=== PATIENT | female | born 1980 | race African-American/Black ===

== ENCOUNTER 2019-05-18 09:49 | Emergency (ER) | payer MEDICAID ==
[~2019-05-18] VITALS: Ht 162.6 cm; Wt 60.0 kg
[2019-05-18] MEDS ORDERED: SODIUM CHLORIDE 0.9% 1,000 ML IV ONE (10:19)
[2019-05-18 11:22] LABS: BASOPHILS % 0.5 % (0.0-2.0); EOSINOPHILS % 0.2 % (0.0-5.0); HEMATOCRIT. 40.3 % (36.0-48.0); HEMOGLOBIN. 13.6 g/dL (12.0-16.0); LYMPHOCYTES % 19.7 % (20.0-50.0); MEAN CORPUSCULAR HEMOGLOBIN 33.5 pg (28.0-32.0); MEAN CORPUSCULAR VOLUME 99.3 fL (81.0-99.0); MEAN PLATELET VOLUME 7.3 fl (7.4-10.4); MONOCYTES % 3.7 % (2.0-8.0); NEUTROPHILS % 75.9 % (40.0-76.0); PLATELET 286 x1000/uL (130-400); RED BLOOD CELL COUNT 4.06 mill/uL (4.2-5.4); RED CELL DISTRIBUTION WIDTH 13.1 % (11.6-14.6)
[2019-05-18 11:27] LABS: CHLORIDE 107 mEq/L (98-107)
[2019-05-18] MEDS ORDERED: ONDANSETRON HCL 4MG/2ML INJ IV ONE ×2 (11:30→13:45)
[2019-05-18 11:31] LABS: ETHANOL BLOOD < 10 mg/dL
[2019-05-18 11:38] LABS: HCG SCREEN NEGATIVE
[2019-05-18] MEDS ORDERED: ACETAMINOPHEN 325MG TABLET PO ONE (13:30)
[2019-05-18] MEDS ORDERED: IBUPROFEN 400MG TABLET PO ONE (13:30)
[2019-05-18] MEDS ORDERED: HYDROCODONE/ACETAMINOPHEN 5/325MG TABLET PO ONE (14:30)
[2019-05-18 14:58] LABS: CLARITY URINE CLEAR (CLEAR); COLOR URINE YELLOW (YELLOW); KETONES URINE TRACE (NEGATIVE); LEUKOCYTE ESTERASE URINE NEGATIVE (NEGATIVE); NITRITE URINE NEGATIVE (NEGATIVE); OCCULT BLOOD URINE NEGATIVE (NEGATIVE); PROTEIN URINE 1+ (NEGATIVE); SPECIFIC GRAVITY URINE 1.021 (1.005-1.030)
[2019-05-18 15:23] LABS: *AMPHETAMINES SCREEN URINE NEGATIVE (NEGATIVE); *BARBITURATES SCREEN URINE NEGATIVE (NEGATIVE); *BENZODIAZEPINES SCREEN URINE NEGATIVE (NEGATIVE); *COCAINE SCREEN URINE NEGATIVE (NEGATIVE); METHADONE URINE SCREEN NEGATIVE (NEGATIVE); OPIATES URINE SCREEN NEGATIVE (NEGATIVE)
[2019-05-18 15:24] LABS: PHENCYCLIDINE URINE SCREEN NEGATIVE (NEGATIVE)
[2019-05-18 15:25] LABS: CANNABINOID URINE SCREEN PRESUMTIVE POSITIVE (NEGATIVE)
[2019-05-18 16:50] VITALS: BP 105/64
== END 2019-05-18 17:40 | disposition home or self-care (01) ==
LOC: ER 09:49
DX: G40.909 Epilepsy, unspecified, not intractable, without status epilepticus (principal); Z91.14 Patient's other noncompliance with medication regimen; R73.9 Hyperglycemia, unspecified; F12.90 Cannabis use, unspecified, uncomplicated
CPT/HCPCS: 36415; 70450; 80053; 80305; 80320; 81003; 82962; 84703; 85025; 96374; 96376; 99285; J2405; J7030; G0480

== ENCOUNTER 2019-07-11 06:18 | Emergency (ER) | payer MEDICAID, OTHER ==
[~2019-07-11] VITALS: Ht 154.9 cm; Wt 55.0 kg
[2019-07-11 07:00] LABS: BASOPHILS % 1.1 % (0.0-2.0); EOSINOPHILS % 0.4 % (0.0-5.0); HEMATOCRIT. 40.7 % (36.0-48.0); HEMOGLOBIN. 13.9 g/dL (12.0-16.0); LYMPHOCYTES % 53.2 % (20.0-50.0); MEAN CORPUSCULAR HEMOGLOBIN 34.5 pg (28.0-32.0); MEAN CORPUSCULAR VOLUME 100.9 fL (81.0-99.0); MEAN PLATELET VOLUME 7.6 fl (7.4-10.4); NEUTROPHILS % 40.3 % (40.0-76.0); PLATELET 265 x1000/uL (130-400); RED BLOOD CELL COUNT 4.03 mill/uL (4.2-5.4); RED CELL DISTRIBUTION WIDTH 13.8 % (11.6-14.6)
[2019-07-11] MEDS ORDERED: LEVETIRACETAM 1000MG/100ML 100 ML IV ONE (07:00)
[2019-07-11 07:06] LABS: CHLORIDE 107 mEq/L (98-107)
[2019-07-11 07:08] LABS: PROTHROMBIN TIME 10.4 sec (9.6-11.0)
[2019-07-11 07:10] LABS: ETHANOL BLOOD < 10 mg/dL
[2019-07-11 11:00] VITALS: BP 108/75
== END 2019-07-11 11:33 | disposition home or self-care (01) ==
LOC: ER 06:18
DX: R56.9 Unspecified convulsions (principal)
CPT/HCPCS: 36415; 70450; 71045; 80053; 80320; 82140; 85025; 85610; 93005; 96365; 99285; J1953; G0480

== ENCOUNTER 2021-01-31 09:56 | Emergency (ER) | payer MEDICAID, OTHER ==
[~2021-01-31] VITALS: Ht 160 cm; Wt 55.0 kg
[2021-01-31] MEDS ORDERED: dilantin (10:06)
[2021-01-31] MEDS ORDERED: keppra (10:06)
[2021-01-31] MEDS ORDERED: LEVETIRACETAM 1000MG PREMIX 100 ML IV ONE (10:30)
[2021-01-31] MEDS ORDERED: LEVETIRACETAM 500MG PREMIX 100 ML IV ONE (10:30)
[2021-01-31 10:37] LABS: BASOPHILS % 0.4 % (0.0-2.0); EOSINOPHILS % 0.5 % (0.0-5.0); HEMATOCRIT. 38.7 % (36.0-48.0); HEMOGLOBIN. 12.8 g/dL (12.0-16.0); LYMPHOCYTES % 32.7 % (20.0-50.0); MEAN CORPUSCULAR HEMOGLOBIN 33.3 pg (28.0-32.0); MEAN CORPUSCULAR VOLUME 100.7 fL (81.0-99.0); MONOCYTES % 4.8 % (2.0-8.0); NEUTROPHILS % 61.6 % (40.0-76.0); PLATELET 290 x1000/uL (130-400); RED BLOOD CELL COUNT 3.85 mill/uL (4.2-5.4); RED CELL DISTRIBUTION WIDTH 13.3 % (11.6-14.6)
[2021-01-31 10:44] LABS: CHLORIDE 108 mEq/L (98-107)
[2021-01-31 10:47] LABS: ETHANOL BLOOD < 10 mg/dL
[2021-01-31] MEDS ORDERED: KEPP500 MT (11:16)
[2021-01-31] MEDS ORDERED: SODIUM CHLORIDE 0.9% 1,000 ML IV ONE (11:30)
[2021-01-31] MEDS ORDERED: ONDANSETRON HCL 4MG/2ML INJ IV ONE (11:30)
[2021-01-31 11:51] LABS: CLARITY URINE CLEAR (CLEAR); COLOR URINE YELLOW (YELLOW); KETONES URINE TRACE (NEGATIVE); LEUKOCYTE ESTERASE URINE TRACE (NEGATIVE); NITRITE URINE NEGATIVE (NEGATIVE); OCCULT BLOOD URINE NEGATIVE (NEGATIVE); PROTEIN URINE 2+ (NEGATIVE); SPECIFIC GRAVITY URINE 1.019 (1.005-1.030)
[2021-01-31 12:21] LABS: *AMPHETAMINES SCREEN URINE NEGATIVE (NEGATIVE); *BARBITURATES SCREEN URINE NEGATIVE (NEGATIVE); *BENZODIAZEPINES SCREEN URINE NEGATIVE (NEGATIVE); *COCAINE SCREEN URINE NEGATIVE (NEGATIVE); METHADONE URINE SCREEN NEGATIVE (NEGATIVE); OPIATES URINE SCREEN NEGATIVE (NEGATIVE)
[2021-01-31 12:22] LABS: PHENCYCLIDINE URINE SCREEN NEGATIVE (NEGATIVE)
[2021-01-31 12:28] LABS: CANNABINOID URINE SCREEN PRESUMTIVE POSITIVE (NEGATIVE)
[2021-01-31 13:40] VITALS: BP 108/64
== END 2021-01-31 14:21 | disposition home or self-care (01) ==
LOC: ER 10:10
DX: R56.9 Unspecified convulsions (principal)
CPT/HCPCS: 36415; 80053; 80305; 80320; 81003; 85025; 93005; 96365; 96375; 99284; J1953; J2405; J7030; G0480

== ENCOUNTER 2021-06-24 04:18 | Emergency (ER) | payer MEDICAID, OTHER ==
[~2021-06-24] VITALS: Ht 167.6 cm; Wt 59.0 kg
[~2021-06-24 04:18] MED LIST: KEPP500 MT; dilantin; keppra
[2021-06-24] MEDS ORDERED: SODIUM CHLORIDE 0.9% 1,000 ML IV ONE (04:45)
[2021-06-24] MEDS ORDERED: LEVETIRACETAM 1000MG PREMIX 100 ML IV ONE (04:45)
[2021-06-24] MEDS ORDERED: KEPP500 MT (05:10)
[2021-06-24 05:28] LABS: BASOPHILS % 0.3 % (0.0-2.0); EOSINOPHILS % 0.6 % (0.0-5.0); HEMATOCRIT. 37.7 % (36.0-48.0); HEMOGLOBIN. 12.6 g/dL (12.0-16.0); LYMPHOCYTES % 16.7 % (20.0-50.0); MEAN CORPUSCULAR HEMOGLOBIN 33.3 pg (28.0-32.0); MEAN CORPUSCULAR VOLUME 99.9 fL (81.0-99.0); MEAN PLATELET VOLUME 7.7 fl (7.4-10.4); MONOCYTES % 4.9 % (2.0-8.0); NEUTROPHILS % 77.5 % (40.0-76.0); PLATELET 283 x1000/uL (130-400); RED BLOOD CELL COUNT 3.77 mill/uL (4.2-5.4); RED CELL DISTRIBUTION WIDTH 13.6 % (11.6-14.6)
[2021-06-24] MEDS ORDERED: ONDANSETRON HCL 4MG/2ML INJ IV ONE (05:45)
[2021-06-24 05:59] LABS: CHLORIDE 109 mEq/L (98-107)
[2021-06-24] MEDS ORDERED: ACETAMINOPHEN 325MG TABLET PO ONE (09:45)
[2021-06-24 15:06] VITALS: BP 121/78
== END 2021-06-24 15:17 | disposition home or self-care (01) ==
LOC: ER 04:18
DX: R56.9 Unspecified convulsions (principal); Z91.14 Patient's other noncompliance with medication regimen
CPT/HCPCS: 36415; 70450; 80053; 82962; 85025; 96361; 96365; 96375; 99285; J1953; J2405; J7030; Z7610

== ENCOUNTER 2022-08-25 08:32 | Emergency (ER) | payer MEDICAID, OTHER ==
[~2022-08-25] VITALS: Ht 165.1 cm; Wt 54.0 kg
[2022-08-25 08:35] VITALS: O2SAT 100
[2022-08-25] MEDS ORDERED: SODIUM CHLORIDE 0.9% 1,000 ML IV ONE (09:15)
[2022-08-25] MEDS ORDERED: LEVETIRACETAM 1000MG PREMIX 100 ML IV ONE (09:15)
[2022-08-25 10:14] LABS: BASOPHILS % 0.2 % (0.0-2.0); EOSINOPHILS % 0.1 % (0.0-5.0); HEMATOCRIT. 41.3 % (36.0-48.0); MEAN CORPUSCULAR HEMOGLOBIN 34.2 pg (28.0-32.0); MEAN CORPUSCULAR VOLUME 100.7 fL (81.0-99.0); MONOCYTES % 4.7 % (2.0-8.0); PLATELET 284 x1000/uL (130-400)
[2022-08-25 10:22] LABS: CHLORIDE 109 mEq/L (98-107)
[2022-08-25] MEDS ORDERED: LEVE750T4 MT (11:42)
[2022-08-25 11:55] VITALS: BP 110/70; PULSE 91; RESP 14; TEMP 98.3
[2022-08-25] MEDS ORDERED: ACETAMINOPHEN 325MG TABLET PO NR (12:30)
== END 2022-08-25 13:00 | disposition home or self-care (01) ==
LOC: ER 08:32
DX: G40.909 Epilepsy, unspecified, not intractable, without status epilepticus (principal); Z79.899 Other long term (current) drug therapy
CPT/HCPCS: 99284; 96365; 96366; 80053; 85025; 36415; 93005; J1953; J7030

== ENCOUNTER 2024-05-17 00:26 | Emergency (ER) | payer OTHER ==
[~2024-05-17] VITALS: Ht 160 cm; Wt 50.3 kg
[~2024-05-17 00:26] MED LIST changes: +LEVE750T4 MT
[2024-05-17 00:34] VITALS: O2SAT 98
[2024-05-17 00:56] VITALS: BP 149/90; PULSE 58; RESP 16; TEMP 36.6; O2SAT 100
[2024-05-17 01:48] LABS: BASOPHILS % 0.3 % (0.0-2.0); EOSINOPHILS % 0.2 % (0.0-5.0); HEMATOCRIT. 36.1 % (36.0-48.0); HEMOGLOBIN. 11.9 g/dL (12.0-16.0); LYMPHOCYTES % 17.7 % (20.0-50.0); MEAN CORPUSCULAR HEMOGLOBIN 32.5 pg (28.0-32.0); MEAN CORPUSCULAR HGB CONC 32.9 g/dL (31.0-37.0); MEAN CORPUSCULAR VOLUME 98.9 fL (81.0-99.0); MONOCYTES % 6.1 % (2.0-8.0); NEUTROPHILS % 75.7 % (40.0-76.0); PLATELET 184 x1000/uL (130-400); RED BLOOD CELL COUNT 3.65 mill/uL (4.2-5.4); WHITE BLOOD COUNT 6.4 x1000/uL (4.5-11.0)
[2024-05-17 01:58] LABS: CARBON DIOXIDE 24 mEq/L (21-32); CHLORIDE 104 mEq/L (98-107); POTASSIUM 3.5 mEq/L (3.5-5.1); SODIUM 138 mEq/L (136-145)
[2024-05-17 01:59] LABS: CALCIUM 9.2 mg/dL (8.7-10.4)
[2024-05-17 02:04] LABS: CREATININE 0.8 mg/dL (0.6-1.0); GLUCOSE 148 mg/dL (70-105); UREA NITROGEN BLOOD 10 mg/dL (9-23)
[2024-05-17 02:05] LABS: ALANINE AMINOTRANSFERASE 133 IU/L (10-49)
[2024-05-17 02:06] LABS: ALBUMIN 4.2 g/dL (3.2-4.8); ASPARTATE AMINOTRANSFERASE 197 IU/L (<34); BILIRUBIN DIRECT 0.3 mg/dL (<=3.0); BILIRUBIN TOTAL 1.1 mg/dL (0.1-1.0)
[2024-05-17] MEDS: ONDANSETRON 4MG ODT PO ONE (02:30)
[2024-05-17] MEDS: LEVETIRACETAM 500MG TABLET PO ONE (03:59)
== END 2024-05-17 04:40 | disposition home or self-care (01) ==
LOC: ER 00:26
DX: R56.9 Unspecified convulsions (principal); Z91.148 Patient's other noncompliance with medication regimen for other reason
CPT/HCPCS: 99283; 80076; 80048; 83690; 85025; 36415; 82542; Q0162